=== PATIENT | female | born 2000 | race American Indian/Alaskan Native ===

== ENCOUNTER 2020-09-13 20:04 | Emergency (ER) | payer MEDICAID ==
[2020-09-13 20:51] VITALS: BP 105/75
--- NOTE | 2020-09-13 21:25 | Emergency Department Report ---
ED General Adult HPI - General Chief complaint: Skin/Abscess/Foreign Body Stated complaint: PAIN IN ARM PIT Time Seen by Provider: 09/13/20 20:58 Source: patient Mode of arrival: Ambulatory Limitations: No Limitations - History of Present Illness Initial comments: Patient presents with complaints of right axillary pain and swelling x2 days. She denies any injury, fever/chills/sweats, or difficulty moving her arm. She states there are two bumps that are swelling and tender. No history of hidradenitis suppurativa per patient. She rates her pain as 8/10 in severity. She has not tried any OTC medication for symptoms. -: Sudden - Related Data Previous Rx's Medication Instructions Recorded Last Taken Type Sulfamethoxazole/Trimethoprim 1 each PO BID #14 tablet 01/16/13 Unknown Rx [Bactrim DS] Clindamycin [Clindamycin CAP] 300 mg PO Q6H 10 Days #40 capsule 09/13/20 Unknown Rx Ibuprofen [Motrin 800 MG tab] 800 mg PO Q8HR PRN #20 tablet 09/13/20 Unknown Rx Mupirocin [Bactroban 2% OINT] 1 applic TP TID 7 Days #1 tube 09/13/20 Unknown Rx Allergies Allergy/AdvReac Type Severity Reaction Status Date / Time No Known Allergies Allergy Unverified 01/16/13 14:22 ED Review of Systems ROS: Stated complaint: PAIN IN ARM PIT Other details as noted in HPI Constitutional: denies: chills, fever, malaise Musculoskeletal: denies: arthralgia Skin: as per HPI ED Past Medical Hx - Past Medical History Previous Medical History?: No - Surgical History Past Surgical History?: No - Social History Smoking Status: Never Smoker Substance Use Type: Marijuana - Medications Home Medications: Home Medications Medication Instructions Recorded Confirmed Last Taken Type Sulfamethoxazole/Trimethoprim 1 each PO BID #14 tablet 01/16/13 Unknown Rx [Bactrim DS] Clindamycin [Clindamycin CAP] 300 mg PO Q6H 10 Days #40 capsule 09/13/20 Unknown Rx Ibuprofen [Motrin 800 MG tab] 800 mg PO Q8HR PRN #20 tablet 09/13/20 Unknown Rx Mupirocin [Bactroban 2% OINT] 1 applic TP TID 7 Days #1 tube 09/13/20 Unknown Rx ED Physical Exam - General Limitations: No Limitations General appearance: alert, in no apparent distress - Head Head exam: Present: atraumatic, normocephalic - Eye Eye exam: Present: normal appearance - Respiratory Respiratory exam: Absent: respiratory distress - Cardiovascular Cardiovascular Exam: Present: regular rate - Neurological Exam Neurological exam: Present: alert, oriented X3 - Psychiatric Psychiatric exam: Present: normal affect, normal mood - Skin Skin exam: Present: warm, dry, intact, other (Two approximately 2 to 3 cm abscesses noted to right axilla with mild surrounding erythema). Absent: rash ED Course Vital Signs 09/13/20 20:47 Temperature 99.2 F Pulse Rate 79 Respiratory 16 Rate Blood Pressure 105/75 O2 Sat by Pulse 98 Oximetry - I & D Arm Type of Procedure: Simple Site: Right axilla Blade Size: 11 I & D Procedure: betadine prep, sterile drapes applied, sterile dressing applied Progress: 10 cc of lidocaine 1% without epi used anesthetize area. Mild purulent discharge obtained from abscesses. Minimal bleeding occurred. Patient tolerated procedure well without any immediate complications. She has normal range of motion and radial and ulnar pulses post procedure. ED Medical Decision Making - Medical Decision Making Patient presents with complaints of right axillary pain and swelling x2 days. She denies any injury, fever/chills/sweats, or difficulty moving her arm. She states there are two bumps that are swelling and tender. No history of hidradenitis suppurativa per patient. She rates her pain as 8/10 in severity. She has not tried any OTC medication for symptoms. Axillary abscess noted on exam. Incision and drainage performed. Patient tolerated procedure well without any immediate complications. Wound culture sent. Will place patient on clindamycin and mupirocin. Discussed wound care and strict return precautions in detail with patient who verbalizes understanding. She is well-appearing, her vitals are within normal limits, she is stable for discharge home. Patient to follow-up with her primary care doctor in 3 to 5 days. Critical care attestation.: If time is entered above; I have spent that time in minutes in the direct care of this critically ill patient, excluding procedure time. ED Disposition Clinical Impression: Abscess of right axilla Disposition: TO HOME OR SELFCARE Is pt being admited?: No Condition: Stable Instructions: Skin Abscess, Incision and Drainage, Care After Prescriptions: Mupirocin [Bactroban 2% OINT] 1 applic TP TID 7 Days #1 tube Clindamycin [Clindamycin CAP] 300 mg PO Q6H 10 Days #40 capsule Ibuprofen [Motrin 800 MG tab] 800 mg PO Q8HR PRN #20 tablet PRN Reason: pain Referrals: [facility] [Provider Group] - 3-5 Days Time of Disposition: 21:24
== END 2020-09-13 21:45 | disposition home or self-care (01) ==
LOC: ED 20:04
DX: L02.411 Cutaneous abscess of right axilla (principal); F12.10 Cannabis abuse, uncomplicated; Z79.899 Other long term (current) drug therapy
CPT/HCPCS: 87116

== ENCOUNTER 2021-01-27 10:42 | Emergency (ER) | payer MEDICAID | END 2021-01-27 10:45 | LOC: ED 10:42 | DX: R22.0 Localized swelling, mass and lump, head (principal) ==

== ENCOUNTER 2021-01-30 23:40 | Emergency (ER) | payer OTHER, MEDICAID ==
[2021-01-31 00:20] VITALS: BP 136/80
[2021-01-31] MEDS ORDERED: ACETAMINOPHEN 500 MG TAB PO ONE (01:20)
[2021-01-31] MEDS ORDERED: IBUPROFEN 600 MG TAB PO ONE (01:20)
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
== END 2021-01-31 03:03 | disposition home or self-care (01) ==
LOC: EDUNIT# → ED 23:40
DX: M62.830 Muscle spasm of back (principal); M62.838 Other muscle spasm; F12.90 Cannabis use, unspecified, uncomplicated; V89.2XXA Person injured in unspecified motor-vehicle accident, traffic, initial encounter; Y93.89 Activity, other specified; Y92.009 Unspecified place in unspecified non-institutional (private) residence as the place of occurrence of the external cause; Y99.8 Other external cause status
CPT/HCPCS: 72040; 72100; 99283